=== PATIENT | male | born 1945 | race Caucasian/White ===

== ENCOUNTER 2021-02-21 00:51 | Outpatient (RCR) | payer OTHER, SELFPAY ==
[2021-02-07] MEDS: Normal Saline Flush 10 ML SYR IVP (08:22)
[2021-02-07 08:35] LABS: Abs Immature Grans 0.01 10^3/uL (0.0-0.06); Absolute Basophil Count 0.02 10^3/uL (0.0-0.2); Absolute Eosinophil Count 0.12 10^3/uL (0.0-0.7); Absolute Lymphocyte Count 1.06 10^3/uL (1.2-3.4); Absolute Monocyte Count 0.38 10^3/uL (0.1-0.8); Absolute Neutrophil Count 3.15 10^3/uL (1.2-6.7); Basophils % 0.4; Eosinophils % 2.5; HCT 39.6 % (40.0-50.0); HGB 12.2 g/dL (13.5-17.5); Immature Grans % 0.2; Lymphocytes % 22.4; MCH 28.1 pg (27.0-33.0); MCHC 30.8 % (32.0-36.0); MCV 91.2 fL (80-95); MPV 10.1 fL (8.0-11.0); Neutrophils % 66.5; Nucleated RBC 0 %; Platelet Count 181 10^3/uL (130-400); RBC 4.34 10^6/uL (4.36-5.78); RDW 17.8 % (11.8-14.1); RDW-SD 59.5 fL; WBC 4.74 10^3/uL (4.4-10.8)
[2021-02-07 09:09] LABS: ALT 22 U/L (16-63); AST 18 U/L (15-37); Albumin 3.4 g/dL (3.4-5.0); Alkaline Phosphatase 151 U/L (46-116); Anion Gap 6.3 mmol/L (3-11); BUN 12 mg/dL (7-18); Bilirubin, Total 0.4 mg/dL (0.2-1.0); CO2 30.7 mmol/L (21.0-32.0); Calcium 8.5 mg/dL (8.5-10.1); Chloride 105 mmol/L (98-107); Glucose 151 mg/dL (74-106); Potassium 3.6 mmol/L (3.5-5.1); Sodium 142 mmol/L (136-145); Total Protein 7.3 g/dL (6.4-8.2)
[2021-02-08 13:47] LABS: CEA <2.0 ng/mL (See Note)
[2021-02-21] MEDS: Normal Saline Flush 10 ML SYR IVP (09:08)
[2021-02-21 09:23] LABS: Abs Immature Grans 0.01 10^3/uL (0.0-0.06); Absolute Basophil Count 0.02 10^3/uL (0.0-0.2); Absolute Eosinophil Count 0.11 10^3/uL (0.0-0.7); Absolute Lymphocyte Count 1.26 10^3/uL (1.2-3.4); Absolute Monocyte Count 0.58 10^3/uL (0.1-0.8); Absolute Neutrophil Count 3.04 10^3/uL (1.2-6.7); Basophils % 0.4; Eosinophils % 2.2; HCT 38.4 % (40.0-50.0); HGB 12.1 g/dL (13.5-17.5); Immature Grans % 0.2; Lymphocytes % 25.1; MCH 28.2 pg (27.0-33.0); MCHC 31.5 % (32.0-36.0); MCV 89.5 fL (80-95); MPV 9.5 fL (8.0-11.0); Monocytes % 11.6; Neutrophils % 60.5; Nucleated RBC 0 %; Platelet Count 153 10^3/uL (130-400); RBC 4.29 10^6/uL (4.36-5.78); RDW 16.5 % (11.8-14.1); RDW-SD 51.6 fL; WBC 5.02 10^3/uL (4.4-10.8)
[2021-02-21 09:42] LABS: ALT 22 U/L (16-63); AST 17 U/L (15-37); Albumin 3.4 g/dL (3.4-5.0); Alkaline Phosphatase 124 U/L (46-116); Anion Gap 7.9 mmol/L (3-11); BUN 14 mg/dL (7-18); Bilirubin, Total 0.5 mg/dL (0.2-1.0); CO2 29.1 mmol/L (21.0-32.0); CREATININE 0.9 mg/dL (0.70-1.30); Calcium 8.5 mg/dL (8.5-10.1); Chloride 109 mmol/L (98-107); Glucose 108 mg/dL (74-106); Potassium 3.3 mmol/L (3.5-5.1); Sodium 146 mmol/L (136-145); Total Protein 7.3 g/dL (6.4-8.2)
[2021-02-21 17:39] LABS: CEA 0.9 ng/mL (See Note)
== END 2021-02-27 23:59 | disposition home or self-care (01) ==
LOC: INF 00:51
PROVIDERS: PCP Family Medicine; Visit Provider Internal Medicine Medical Oncology
DX: C77.1 Secondary and unspecified malignant neoplasm of intrathoracic lymph nodes (principal); C15.5 Malignant neoplasm of lower third of esophagus
CPT/HCPCS: 36591; 80053; 82378; 83735; 85025

== ENCOUNTER 2021-03-21 01:38 | Outpatient (RCR) | payer OTHER, SELFPAY ==
[2021-03-07] MEDS: Normal Saline Flush 10 ML SYR IVP (08:49)
[2021-03-07 09:00] LABS: Absolute Basophil Count 0.02 10^3/uL (0.0-0.2); Absolute Eosinophil Count 0.06 10^3/uL (0.0-0.7); Absolute Monocyte Count 0.63 10^3/uL (0.1-0.8); Absolute Neutrophil Count 2.08 10^3/uL (1.2-6.7); Basophils % 0.5; Eosinophils % 1.5; HGB 12.3 g/dL (13.5-17.5); Lymphocytes % 30.1; MCH 28.6 pg (27.0-33.0); MCHC 31.5 % (32.0-36.0); MCV 90.7 fL (80-95); MPV 10.2 fL (8.0-11.0); Monocytes % 15.8; Neutrophils % 52.1; Nucleated RBC 0 %; Platelet Count 118 10^3/uL (130-400); RDW 16.1 % (11.8-14.1); RDW-SD 50.9 fL; WBC 3.99 10^3/uL (4.4-10.8)
[2021-03-07 09:17] LABS: ALT 34 U/L (16-63); AST 29 U/L (15-37); Albumin 3.6 g/dL (3.4-5.0); Alkaline Phosphatase 132 U/L (46-116); Anion Gap 5.2 mmol/L (3-11); BUN 18 mg/dL (7-18); Bilirubin, Total 0.6 mg/dL (0.2-1.0); CO2 31.8 mmol/L (21.0-32.0); CREATININE 1.1 mg/dL (0.70-1.30); Calcium 8.9 mg/dL (8.5-10.1); Chloride 105 mmol/L (98-107); Glucose 98 mg/dL (74-106); Potassium 3.7 mmol/L (3.5-5.1); Sodium 142 mmol/L (136-145); Total Protein 7.5 g/dL (6.4-8.2)
[2021-03-07 17:09] LABS: CEA 1.2 ng/mL (See Note)
[2021-03-21] MEDS: Normal Saline Flush 10 ML SYR IVP (08:29)
[2021-03-21 08:42] LABS: Abs Immature Grans 0.01 10^3/uL (0.0-0.06); Absolute Basophil Count 0.02 10^3/uL (0.0-0.2); Absolute Eosinophil Count 0.06 10^3/uL (0.0-0.7); Absolute Lymphocyte Count 1.15 10^3/uL (1.2-3.4); Absolute Monocyte Count 0.55 10^3/uL (0.1-0.8); Absolute Neutrophil Count 1.26 10^3/uL (1.2-6.7); Basophils % 0.7; HCT 38.8 % (40.0-50.0); HGB 12.3 g/dL (13.5-17.5); Immature Grans % 0.3; Lymphocytes % 37.7; MCH 29.1 pg (27.0-33.0); MCHC 31.7 % (32.0-36.0); MCV 91.7 fL (80-95); MPV 10.4 fL (8.0-11.0); Neutrophils % 41.3; Nucleated RBC 0 %; Platelet Count 103 10^3/uL (130-400); RBC 4.23 10^6/uL (4.36-5.78); RDW 16.5 % (11.8-14.1); RDW-SD 52.1 fL; WBC 3.05 10^3/uL (4.4-10.8)
[2021-03-21 08:53] LABS: ALT 44 U/L (16-63); AST 35 U/L (15-37); Albumin 3.5 g/dL (3.4-5.0); Alkaline Phosphatase 136 U/L (46-116); Anion Gap 7.1 mmol/L (3-11); BUN 17 mg/dL (7-18); Bilirubin, Total 0.5 mg/dL (0.2-1.0); CO2 29.9 mmol/L (21.0-32.0); CREATININE 0.9 mg/dL (0.70-1.30); Calcium 8.7 mg/dL (8.5-10.1); Chloride 106 mmol/L (98-107); Glucose 146 mg/dL (74-106); Magnesium 1.9 mg/dL (1.8-2.4); Potassium 3.4 mmol/L (3.5-5.1); Sodium 143 mmol/L (136-145); Total Protein 7.3 g/dL (6.4-8.2)
[2021-03-21 18:37] LABS: CEA 1.3 ng/mL (See Note)
== END 2021-03-29 23:59 | disposition home or self-care (01) ==
LOC: INF 01:38
PROVIDERS: PCP Family Medicine; Visit Provider Internal Medicine Medical Oncology
DX: C15.5 Malignant neoplasm of lower third of esophagus (principal); Z45.2 Encounter for adjustment and management of vascular access device; C77.1 Secondary and unspecified malignant neoplasm of intrathoracic lymph nodes
CPT/HCPCS: 36591; 80053; 82378; 83735; 85025

== ENCOUNTER 2021-04-18 01:23 | Outpatient (RCR) | payer OTHER, SELFPAY ==
[2021-04-04] MEDS: Normal Saline Flush 10 ML SYR IVP (08:40)
[2021-04-04 08:55] LABS: Abs Immature Grans 0.01 10^3/uL (0.0-0.06); Absolute Basophil Count 0.01 10^3/uL (0.0-0.2); Absolute Eosinophil Count 0.05 10^3/uL (0.0-0.7); Absolute Lymphocyte Count 1.07 10^3/uL (1.2-3.4); Absolute Monocyte Count 0.67 10^3/uL (0.1-0.8); Basophils % 0.2; Eosinophils % 1.2; HCT 36.9 % (40.0-50.0); HGB 11.9 g/dL (13.5-17.5); Immature Grans % 0.2; Lymphocytes % 26.7; MCH 29.8 pg (27.0-33.0); MCHC 32.2 % (32.0-36.0); MCV 92.3 fL (80-95); MPV 10.4 fL (8.0-11.0); Monocytes % 16.7; Nucleated RBC 0 %; RDW 17.2 % (11.8-14.1); RDW-SD 55.9 fL; WBC 4.01 10^3/uL (4.4-10.8)
[2021-04-04 09:05] LABS: Absolute Neutrophil Count 2.21 10^3/uL (1.2-6.7)
[2021-04-04 09:11] LABS: ALT 39 U/L (16-63); AST 31 U/L (15-37); Albumin 3.3 g/dL (3.4-5.0); Alkaline Phosphatase 121 U/L (46-116); Anion Gap 7.4 mmol/L (3-11); BUN 14 mg/dL (7-18); Bilirubin, Total 0.6 mg/dL (0.2-1.0); CO2 29.6 mmol/L (21.0-32.0); CREATININE 0.9 mg/dL (0.70-1.30); Calcium 8.9 mg/dL (8.5-10.1); Chloride 104 mmol/L (98-107); Glucose 109 mg/dL (74-106); Magnesium 1.9 mg/dL (1.8-2.4); Potassium 3.4 mmol/L (3.5-5.1); Sodium 141 mmol/L (136-145)
[2021-04-04 09:19] LABS: Platelet Count 99 10^3/uL (130-400)
[2021-04-04 17:38] LABS: CEA 1.3 ng/mL (See Note)
[2021-04-18] MEDS: Normal Saline Flush 10 ML SYR IVP (09:42)
[2021-04-18 09:50] LABS: Abs Immature Grans 0.01 10^3/uL (0.0-0.06); Absolute Basophil Count 0.02 10^3/uL (0.0-0.2); Absolute Eosinophil Count 0.06 10^3/uL (0.0-0.7); Absolute Lymphocyte Count 1.06 10^3/uL (1.2-3.4); Absolute Monocyte Count 0.76 10^3/uL (0.1-0.8); Absolute Neutrophil Count 1.83 10^3/uL (1.2-6.7); Basophils % 0.5; Eosinophils % 1.6; HCT 38.2 % (40.0-50.0); HGB 11.9 g/dL (13.5-17.5); Immature Grans % 0.3; Lymphocytes % 28.3; MCH 30.1 pg (27.0-33.0); MCHC 31.2 % (32.0-36.0); MCV 96.7 fL (80-95); MPV 11.5 fL (8.0-11.0); Monocytes % 20.3; Nucleated RBC 0 %; Platelet Count 114 10^3/uL (130-400); RBC 3.95 10^6/uL (4.36-5.78); RDW 19.4 % (11.8-14.1); RDW-SD 67.1 fL; WBC 3.74 10^3/uL (4.4-10.8)
[2021-04-18 10:03] LABS: ALT 43 U/L (16-63); AST 39 U/L (15-37); Albumin 3.3 g/dL (3.4-5.0); Alkaline Phosphatase 148 U/L (46-116); Anion Gap 6.9 mmol/L (3-11); BUN 13 mg/dL (7-18); Bilirubin, Total 0.6 mg/dL (0.2-1.0); CO2 28.1 mmol/L (21.0-32.0); CREATININE 1.1 mg/dL (0.70-1.30); Chloride 105 mmol/L (98-107); Glucose 96 mg/dL (74-106); Magnesium 2.1 mg/dL (1.8-2.4); Sodium 140 mmol/L (136-145); Total Protein 7.3 g/dL (6.4-8.2)
[2021-04-18 18:20] LABS: CEA 1.8 ng/mL (See Note)
== END 2021-04-29 23:59 | disposition home or self-care (01) ==
LOC: INF 01:23
PROVIDERS: PCP Family Medicine; Visit Provider Internal Medicine Medical Oncology
DX: C77.1 Secondary and unspecified malignant neoplasm of intrathoracic lymph nodes (principal); C15.5 Malignant neoplasm of lower third of esophagus; Z45.2 Encounter for adjustment and management of vascular access device
CPT/HCPCS: 36591; 80053; 82378; 83735; 85025

== ENCOUNTER 2021-05-25 01:04 | Outpatient (RCR) | payer OTHER, SELFPAY ==
[2021-05-02 08:33] LABS: Abs Immature Grans 0.01 10^3/uL (0.0-0.06); Absolute Basophil Count 0.02 10^3/uL (0.0-0.2); Absolute Eosinophil Count 0.06 10^3/uL (0.0-0.7); Absolute Lymphocyte Count 1.11 10^3/uL (1.2-3.4); Absolute Monocyte Count 0.72 10^3/uL (0.1-0.8); Absolute Neutrophil Count 1.44 10^3/uL (1.2-6.7); Basophils % 0.6; Eosinophils % 1.8; HCT 36.2 % (40.0-50.0); HGB 11.6 g/dL (13.5-17.5); Immature Grans % 0.3; MCH 31.3 pg (27.0-33.0); MCV 97.6 fL (80-95); MPV 12.3 fL (8.0-11.0); Monocytes % 21.4; Neutrophils % 42.9; Nucleated RBC 0 %; Platelet Count 108 10^3/uL (130-400); RBC 3.71 10^6/uL (4.36-5.78); RDW 19.9 % (11.8-14.1); RDW-SD 70.6 fL; WBC 3.36 10^3/uL (4.4-10.8)
[2021-05-02 08:47] LABS: ALT 34 U/L (16-63); AST 34 U/L (15-37); Albumin 3.3 g/dL (3.4-5.0); Alkaline Phosphatase 138 U/L (46-116); Anion Gap 10.4 mmol/L (3-11); BUN 14 mg/dL (7-18); Bilirubin, Total 0.5 mg/dL (0.2-1.0); CO2 27.6 mmol/L (21.0-32.0); CREATININE 0.9 mg/dL (0.70-1.30); Calcium 8.7 mg/dL (8.5-10.1); Chloride 105 mmol/L (98-107); Glucose 91 mg/dL (74-106); Magnesium 1.9 mg/dL (1.8-2.4); Potassium 3.2 mmol/L (3.5-5.1); Sodium 143 mmol/L (136-145); Total Protein 7.2 g/dL (6.4-8.2)
[2021-05-02] MEDS: Normal Saline Flush 10 ML SYR IVP (08:49)
[2021-05-16] MEDS: Normal Saline Flush 10 ML SYR IVP (09:02)
[2021-05-16 09:12] LABS: Absolute Basophil Count 0.02 10^3/uL (0.0-0.2); Absolute Eosinophil Count 0.07 10^3/uL (0.0-0.7); Absolute Lymphocyte Count 1.07 10^3/uL (1.2-3.4); Absolute Monocyte Count 0.68 10^3/uL (0.1-0.8); Absolute Neutrophil Count 1.62 10^3/uL (1.2-6.7); Basophils % 0.6; HGB 11.6 g/dL (13.5-17.5); Lymphocytes % 30.9; MCH 31.4 pg (27.0-33.0); MCHC 31.4 % (32.0-36.0); MCV 100.3 fL (80-95); Monocytes % 19.7; Neutrophils % 46.8; Nucleated RBC 0 %; RBC 3.69 10^6/uL (4.36-5.78); RDW 19.8 % (11.8-14.1); RDW-SD 73.3 fL; WBC 3.46 10^3/uL (4.4-10.8)
[2021-05-16 09:27] LABS: Platelet Count 96 10^3/uL (130-400)
[2021-05-16 09:43] LABS: ALT 29 U/L (16-63); AST 32 U/L (15-37); Albumin 3.3 g/dL (3.4-5.0); Alkaline Phosphatase 137 U/L (46-116); Anion Gap 9.4 mmol/L (3-11); BUN 13 mg/dL (7-18); Bilirubin, Total 0.5 mg/dL (0.2-1.0); CO2 27.6 mmol/L (21.0-32.0); Chloride 104 mmol/L (98-107); Glucose 105 mg/dL (74-106); Magnesium 1.9 mg/dL (1.8-2.4); Potassium 3.6 mmol/L (3.5-5.1); Sodium 141 mmol/L (136-145); Total Protein 7.2 g/dL (6.4-8.2)
[2021-05-16 18:20] LABS: CEA 1.5 ng/mL (See Note)
[2021-05-25] MEDS: Normal Saline Flush 10 ML SYR IVP (10:46)
[2021-05-25 10:59] LABS: Abs Immature Grans 0.01 10^3/uL (0.0-0.06); Absolute Basophil Count 0.01 10^3/uL (0.0-0.2); Absolute Eosinophil Count 0.14 10^3/uL (0.0-0.7); Absolute Lymphocyte Count 1.17 10^3/uL (1.2-3.4); Absolute Monocyte Count 1.02 10^3/uL (0.1-0.8); Absolute Neutrophil Count 1.32 10^3/uL (1.2-6.7); Basophils % 0.3; Eosinophils % 3.8; HCT 38.1 % (40.0-50.0); HGB 12.1 g/dL (13.5-17.5); Immature Grans % 0.3; Lymphocytes % 31.9; MCH 31.9 pg (27.0-33.0); MCHC 31.8 % (32.0-36.0); MCV 100.5 fL (80-95); MPV 11.3 fL (8.0-11.0); Monocytes % 27.8; Neutrophils % 35.9; Nucleated RBC 0 %; Platelet Count 151 10^3/uL (130-400); RBC 3.79 10^6/uL (4.36-5.78); RDW 18.8 % (11.8-14.1); RDW-SD 69.7 fL; WBC 3.67 10^3/uL (4.4-10.8)
[2021-05-25 11:11] LABS: ALT 24 U/L (16-63); AST 31 U/L (15-37); Albumin 3.4 g/dL (3.4-5.0); Alkaline Phosphatase 144 U/L (46-116); Anion Gap 8.1 mmol/L (3-11); BUN 19 mg/dL (7-18); Bilirubin, Total 0.5 mg/dL (0.2-1.0); CO2 30.9 mmol/L (21.0-32.0); CREATININE 1.2 mg/dL (0.70-1.30); Chloride 100 mmol/L (98-107); Estimated GFR 59.18 (mL/min/1.73m2); Glucose 116 mg/dL (74-106); Magnesium 2.1 mg/dL (1.8-2.4); Potassium 3.3 mmol/L (3.5-5.1); Sodium 139 mmol/L (136-145); Total Protein 7.6 g/dL (6.4-8.2)
[2021-05-25 17:50] LABS: CEA 1.3 ng/mL (See Note)
== END 2021-05-30 23:59 | disposition home or self-care (01) ==
LOC: INF 01:04
PROVIDERS: PCP Family Medicine; Visit Provider Internal Medicine Medical Oncology
DX: C15.5 Malignant neoplasm of lower third of esophagus (principal); C77.1 Secondary and unspecified malignant neoplasm of intrathoracic lymph nodes; Z45.2 Encounter for adjustment and management of vascular access device
CPT/HCPCS: 36591; 80053; 82378; 83735; 85025

== ENCOUNTER 2021-06-20 02:00 | Outpatient (RCR) | payer OTHER, SELFPAY ==
[2021-06-06] MEDS: Normal Saline Flush 10 ML SYR IVP (08:13)
[2021-06-06 08:32] LABS: Abs Immature Grans 0.01 10^3/uL (0.0-0.06); Absolute Basophil Count 0.01 10^3/uL (0.0-0.2); Absolute Eosinophil Count 0.07 10^3/uL (0.0-0.7); Absolute Lymphocyte Count 0.99 10^3/uL (1.2-3.4); Absolute Monocyte Count 0.54 10^3/uL (0.1-0.8); Absolute Neutrophil Count 1.86 10^3/uL (1.2-6.7); Basophils % 0.3; HCT 37.8 % (40.0-50.0); HGB 12.2 g/dL (13.5-17.5); Immature Grans % 0.3; Lymphocytes % 28.4; MCHC 32.3 % (32.0-36.0); MCV 102.2 fL (80-95); Monocytes % 15.5; Neutrophils % 53.5; Nucleated RBC 0 %; RDW 17.5 % (11.8-14.1); RDW-SD 65.6 fL; WBC 3.48 10^3/uL (4.4-10.8)
[2021-06-06 08:34] LABS: ALT 30 U/L (16-63); AST 31 U/L (15-37); Albumin 3.5 g/dL (3.4-5.0); Alkaline Phosphatase 147 U/L (46-116); Anion Gap 8.8 mmol/L (3-11); BUN 19 mg/dL (7-18); Bilirubin, Total 0.6 mg/dL (0.2-1.0); CO2 30.2 mmol/L (21.0-32.0); CREATININE 1.3 mg/dL (0.70-1.30); Calcium 9.2 mg/dL (8.5-10.1); Chloride 103 mmol/L (98-107); Estimated GFR 53.96 (mL/min/1.73m2); Glucose 109 mg/dL (74-106); Magnesium 1.9 mg/dL (1.8-2.4); Potassium 3.8 mmol/L (3.5-5.1); Sodium 142 mmol/L (136-145)
[2021-06-06 08:41] LABS: Diff Comment Diff Reviewed; Platelet Count 76 10^3/uL (130-400); RBC Morphology Normal
[2021-06-06 19:00] LABS: CEA 1.7 ng/mL (See Note)
[2021-06-20] MEDS: Normal Saline Flush 10 ML SYR IVP (08:17)
[2021-06-20 08:42] LABS: Abs Immature Grans 0.01 10^3/uL (0.0-0.06); Absolute Basophil Count 0.02 10^3/uL (0.0-0.2); Absolute Eosinophil Count 0.05 10^3/uL (0.0-0.7); Absolute Lymphocyte Count 1.15 10^3/uL (1.2-3.4); Absolute Monocyte Count 0.77 10^3/uL (0.1-0.8); Absolute Neutrophil Count 1.19 10^3/uL (1.2-6.7); Basophils % 0.6; Eosinophils % 1.6; HCT 35.9 % (40.0-50.0); HGB 11.8 g/dL (13.5-17.5); Immature Grans % 0.3; Lymphocytes % 36.1; MCH 33.8 pg (27.0-33.0); MCHC 32.9 % (32.0-36.0); MCV 102.9 fL (80-95); MPV 12.7 fL (8.0-11.0); Monocytes % 24.1; Neutrophils % 37.3; Nucleated RBC 0 %; RBC 3.49 10^6/uL (4.36-5.78); RDW 17.2 % (11.8-14.1); RDW-SD 64.7 fL; WBC 3.19 10^3/uL (4.4-10.8)
[2021-06-20 08:55] LABS: Diff Comment Diff Reviewed; Platelet Count 78 10^3/uL (130-400); Polychromasia Present
[2021-06-20 08:56] LABS: ALT 28 U/L (16-63); AST 35 U/L (15-37); Albumin 3.3 g/dL (3.4-5.0); Alkaline Phosphatase 147 U/L (46-116); Anion Gap 8.3 mmol/L (3-11); BUN 13 mg/dL (7-18); Bilirubin, Total 0.4 mg/dL (0.2-1.0); CO2 29.7 mmol/L (21.0-32.0); CREATININE 1.1 mg/dL (0.70-1.30); Calcium 9.1 mg/dL (8.5-10.1); Chloride 102 mmol/L (98-107); Glucose 132 mg/dL (74-106); Magnesium 1.9 mg/dL (1.8-2.4); Poikilocytes 1+; Potassium 3.4 mmol/L (3.5-5.1); Sodium 140 mmol/L (136-145); Total Protein 7.4 g/dL (6.4-8.2)
[2021-06-20 18:11] LABS: CEA 1.9 ng/mL (See Note)
== END 2021-06-27 23:59 | disposition home or self-care (01) ==
LOC: INF 02:00
PROVIDERS: PCP Family Medicine; Visit Provider Internal Medicine Medical Oncology
DX: C15.5 Malignant neoplasm of lower third of esophagus (principal); C77.1 Secondary and unspecified malignant neoplasm of intrathoracic lymph nodes; Z45.2 Encounter for adjustment and management of vascular access device
CPT/HCPCS: 36591; 80053; 82378; 83735; 85025

== ENCOUNTER 2021-07-18 02:31 | Outpatient (RCR) | payer OTHER, SELFPAY ==
[2021-07-04] MEDS: Normal Saline Flush 10 ML SYR IVP (09:58)
[2021-07-04 10:40] LABS: Abs Immature Grans 0.03 10^3/uL (0.0-0.06); Absolute Basophil Count 0.02 10^3/uL (0.0-0.2); Absolute Eosinophil Count 0.08 10^3/uL (0.0-0.7); Absolute Lymphocyte Count 1.06 10^3/uL (1.2-3.4); Absolute Monocyte Count 0.65 10^3/uL (0.1-0.8); Absolute Neutrophil Count 1.24 10^3/uL (1.2-6.7); Basophils % 0.6; Eosinophils % 2.6; HCT 36.1 % (40.0-50.0); HGB 11.7 g/dL (13.5-17.5); Lymphocytes % 34.4; MCH 33.7 pg (27.0-33.0); MCHC 32.4 % (32.0-36.0); Monocytes % 21.1; Neutrophils % 40.3; Nucleated RBC 0 %; RBC 3.47 10^6/uL (4.36-5.78); RDW 16.5 % (11.8-14.1); RDW-SD 63.6 fL; WBC 3.08 10^3/uL (4.4-10.8)
[2021-07-04 10:49] LABS: ALT 26 U/L (16-63); AST 34 U/L (15-37); Albumin 3.2 g/dL (3.4-5.0); Alkaline Phosphatase 140 U/L (46-116); Anion Gap 8.7 mmol/L (3-11); BUN 16 mg/dL (7-18); Bilirubin, Total 0.5 mg/dL (0.2-1.0); CO2 28.3 mmol/L (21.0-32.0); CREATININE 1.1 mg/dL (0.70-1.30); Calcium 9.1 mg/dL (8.5-10.1); Chloride 105 mmol/L (98-107); Glucose 105 mg/dL (74-106); Magnesium 1.9 mg/dL (1.8-2.4); Potassium 3.1 mmol/L (3.5-5.1); Sodium 142 mmol/L (136-145); Total Protein 7.6 g/dL (6.4-8.2)
[2021-07-04 10:53] LABS: Platelet Count 85 10^3/uL (130-400)
[2021-07-04 17:49] LABS: CEA 1.5 ng/mL (See Note)
[2021-07-18] MEDS: Normal Saline Flush 10 ML SYR IVP (10:11)
[2021-07-18 10:26] LABS: Abs Immature Grans 0.02 10^3/uL (0.0-0.06); Absolute Basophil Count 0.02 10^3/uL (0.0-0.2); Absolute Eosinophil Count 0.08 10^3/uL (0.0-0.7); Absolute Lymphocyte Count 1.14 10^3/uL (1.2-3.4); Absolute Monocyte Count 0.96 10^3/uL (0.1-0.8); Absolute Neutrophil Count 2.73 10^3/uL (1.2-6.7); Basophils % 0.4; Eosinophils % 1.6; HCT 38.4 % (40.0-50.0); HGB 12.3 g/dL (13.5-17.5); Immature Grans % 0.4; MCH 34.1 pg (27.0-33.0); MCV 106.4 fL (80-95); MPV 11.7 fL (8.0-11.0); Monocytes % 19.4; Neutrophils % 55.2; Nucleated RBC 0 %; Platelet Count 126 10^3/uL (130-400); RBC 3.61 10^6/uL (4.36-5.78); RDW 16.4 % (11.8-14.1); RDW-SD 64.4 fL; WBC 4.95 10^3/uL (4.4-10.8)
[2021-07-18 10:40] LABS: ALT 35 U/L (16-63); AST 43 U/L (15-37); Albumin 3.3 g/dL (3.4-5.0); Alkaline Phosphatase 159 U/L (46-116); Anion Gap 8.4 mmol/L (3-11); BUN 17 mg/dL (7-18); Bilirubin, Total 0.5 mg/dL (0.2-1.0); CO2 28.6 mmol/L (21.0-32.0); CREATININE 1.1 mg/dL (0.70-1.30); Calcium 8.9 mg/dL (8.5-10.1); Chloride 102 mmol/L (98-107); Glucose 103 mg/dL (74-106); Magnesium 1.9 mg/dL (1.8-2.4); Potassium 3.9 mmol/L (3.5-5.1); Sodium 139 mmol/L (136-145); Total Protein 7.8 g/dL (6.4-8.2)
[2021-07-18 10:42] LABS: Macrocytosis 1+
== END 2021-07-28 23:59 | disposition home or self-care (01) ==
LOC: INF 02:31
PROVIDERS: PCP Family Medicine; Visit Provider Internal Medicine Medical Oncology
DX: C15.5 Malignant neoplasm of lower third of esophagus (principal); C77.1 Secondary and unspecified malignant neoplasm of intrathoracic lymph nodes; Z45.2 Encounter for adjustment and management of vascular access device
CPT/HCPCS: 36591; 80053; 82378; 83735; 85025

== ENCOUNTER 2021-07-18 12:59 | Outpatient (REF) | payer OTHER, SELFPAY ==
[2021-07-18 22:53] LABS: CEA 1.8 ng/mL (See Note)
== END 2021-07-18 13:00 | disposition home or self-care (01) ==
LOC: LBN 12:59
PROVIDERS: PCP Family Medicine; Visit Provider Internal Medicine Medical Oncology
DX: C15.5 Malignant neoplasm of lower third of esophagus (principal); C77.1 Secondary and unspecified malignant neoplasm of intrathoracic lymph nodes
CPT/HCPCS: 82378

== ENCOUNTER 2021-08-15 02:11 | Outpatient (RCR) | payer OTHER, SELFPAY ==
[2021-08-01] MEDS: Normal Saline Flush 10 ML SYR IVP (07:43)
[2021-08-01 08:09] LABS: Absolute Basophil Count 0.02 10^3/uL (0.0-0.2); Absolute Lymphocyte Count 0.95 10^3/uL (1.2-3.4); Absolute Monocyte Count 0.54 10^3/uL (0.1-0.8); Absolute Neutrophil Count 1.66 10^3/uL (1.2-6.7); Basophils % 0.6; Eosinophils % 3.1; HCT 37.5 % (40.0-50.0); HGB 11.9 g/dL (13.5-17.5); Lymphocytes % 29.1; MCH 33.9 pg (27.0-33.0); MCHC 31.7 % (32.0-36.0); MCV 106.8 fL (80-95); MPV 11.8 fL (8.0-11.0); Monocytes % 16.5; Neutrophils % 50.7; Nucleated RBC 0 %; RBC 3.51 10^6/uL (4.36-5.78); RDW 15.4 % (11.8-14.1); RDW-SD 61.1 fL; WBC 3.27 10^3/uL (4.4-10.8)
[2021-08-01 08:21] LABS: ALT 32 U/L (16-63); AST 37 U/L (15-37); Albumin 3.3 g/dL (3.4-5.0); Alkaline Phosphatase 139 U/L (46-116); Anion Gap 8.8 mmol/L (3-11); BUN 19 mg/dL (7-18); Bilirubin, Total 0.6 mg/dL (0.2-1.0); CO2 28.2 mmol/L (21.0-32.0); Calcium 8.7 mg/dL (8.5-10.1); Chloride 103 mmol/L (98-107); Glucose 122 mg/dL (74-106); Magnesium 1.9 mg/dL (1.8-2.4); Potassium 3.6 mmol/L (3.5-5.1); Sodium 140 mmol/L (136-145); Total Protein 7.4 g/dL (6.4-8.2)
[2021-08-01 08:27] LABS: Platelet Count 80 10^3/uL (130-400)
[2021-08-01 08:28] LABS: Diff Comment RBC Morph Reviewed; Macrocytosis 2+
[2021-08-01 18:36] LABS: CEA 1.5 ng/mL (See Note)
[2021-08-15] MEDS: Normal Saline Flush 10 ML SYR IVP (07:33)
[2021-08-15 07:48] LABS: Abs Immature Grans 0.01 10^3/uL (0.0-0.06); Absolute Basophil Count 0.01 10^3/uL (0.0-0.2); Absolute Eosinophil Count 0.05 10^3/uL (0.0-0.7); Absolute Lymphocyte Count 0.78 10^3/uL (1.2-3.4); Absolute Monocyte Count 0.52 10^3/uL (0.1-0.8); Basophils % 0.4; HCT 36.3 % (40.0-50.0); HGB 11.7 g/dL (13.5-17.5); Immature Grans % 0.4; Lymphocytes % 31.6; MCH 33.7 pg (27.0-33.0); MCHC 32.2 % (32.0-36.0); MCV 104.6 fL (80-95); MPV 11.1 fL (8.0-11.0); Monocytes % 21.1; Neutrophils % 44.5; RBC 3.47 10^6/uL (4.36-5.78); RDW 15.7 % (11.8-14.1); RDW-SD 60.3 fL; WBC 2.47 10^3/uL (4.4-10.8)
[2021-08-15 07:52] LABS: Platelet Count 96 10^3/uL (130-400)
[2021-08-15 07:59] LABS: ALT 33 U/L (16-63); AST 40 U/L (15-37); Albumin 3.3 g/dL (3.4-5.0); Alkaline Phosphatase 146 U/L (46-116); Anion Gap 8.3 mmol/L (3-11); BUN 17 mg/dL (7-18); Bilirubin, Total 0.6 mg/dL (0.2-1.0); CO2 29.7 mmol/L (21.0-32.0); CREATININE 1.3 mg/dL (0.70-1.30); Calcium 8.9 mg/dL (8.5-10.1); Chloride 104 mmol/L (98-107); Estimated GFR 53.96 (mL/min/1.73m2); Glucose 146 mg/dL (74-106); Magnesium 1.9 mg/dL (1.8-2.4); Potassium 3.6 mmol/L (3.5-5.1); Sodium 142 mmol/L (136-145); Total Protein 7.5 g/dL (6.4-8.2)
[2021-08-15 18:09] LABS: CEA 1.4 ng/mL (See Note)
== END 2021-08-27 23:59 | disposition home or self-care (01) ==
LOC: INF 02:11
PROVIDERS: PCP Family Medicine; Visit Provider Internal Medicine Medical Oncology
DX: C15.5 Malignant neoplasm of lower third of esophagus (principal); C77.1 Secondary and unspecified malignant neoplasm of intrathoracic lymph nodes; Z45.2 Encounter for adjustment and management of vascular access device
CPT/HCPCS: 36591; 80053; 82378; 83735; 85025

== ENCOUNTER 2021-09-12 02:55 | Outpatient (RCR) | payer OTHER, SELFPAY ==
[2021-08-29] MEDS: Normal Saline Flush 10 ML SYR IVP (07:41)
[2021-08-29 08:20] LABS: Absolute Basophil Count 0.02 10^3/uL (0.0-0.2); Absolute Eosinophil Count 0.06 10^3/uL (0.0-0.7); Absolute Lymphocyte Count 1.05 10^3/uL (1.2-3.4); Absolute Monocyte Count 0.54 10^3/uL (0.1-0.8); Absolute Neutrophil Count 1.37 10^3/uL (1.2-6.7); Basophils % 0.7; HCT 36.4 % (40.0-50.0); HGB 11.7 g/dL (13.5-17.5); Lymphocytes % 34.5; MCH 34.5 pg (27.0-33.0); MCHC 32.1 % (32.0-36.0); MCV 107 fL (80-95); MPV 11.3 fL (8.0-11.0); Monocytes % 17.8; Platelet Count 118 10^3/uL (130-400); RBC 3.39 10^6/uL (4.36-5.78); RDW 15.9 % (11.8-14.1); RDW-SD 62.7 fL; WBC 3.04 10^3/uL (4.4-10.8)
[2021-08-29 08:34] LABS: Diff Comment RBC Morph Reviewed
[2021-08-29 08:35] LABS: Macrocytosis 2+
[2021-08-29 08:42] LABS: ALT 25 U/L (16-63); AST 30 U/L (15-37); Albumin 3.3 g/dL (3.4-5.0); Alkaline Phosphatase 132 U/L (46-116); Anion Gap 8.4 mmol/L (3-11); BUN 15 mg/dL (7-18); Bilirubin, Total 0.7 mg/dL (0.2-1.0); CO2 29.6 mmol/L (21.0-32.0); CREATININE 1.1 mg/dL (0.70-1.30); Calcium 8.7 mg/dL (8.5-10.1); Chloride 103 mmol/L (98-107); Glucose 101 mg/dL (74-106); Magnesium 2.1 mg/dL (1.8-2.4); Potassium 3.3 mmol/L (3.5-5.1); Sodium 141 mmol/L (136-145); Total Protein 7.2 g/dL (6.4-8.2)
[2021-08-29 18:23] LABS: CEA 1.8 ng/mL (See Note)
[2021-09-12 10:39] LABS: Abs Immature Grans 0.01 10^3/uL (0.0-0.06); Absolute Basophil Count 0.02 10^3/uL (0.0-0.2); Absolute Eosinophil Count 0.08 10^3/uL (0.0-0.7); Absolute Lymphocyte Count 0.91 10^3/uL (1.2-3.4); Absolute Monocyte Count 0.54 10^3/uL (0.1-0.8); Absolute Neutrophil Count 1.91 10^3/uL (1.2-6.7); Basophils % 0.6; Eosinophils % 2.3; HCT 36.9 % (40.0-50.0); HGB 11.8 g/dL (13.5-17.5); Immature Grans % 0.3; Lymphocytes % 26.2; MCH 34.3 pg (27.0-33.0); MCV 107 fL (80-95); MPV 10.8 fL (8.0-11.0); Monocytes % 15.6; Platelet Count 132 10^3/uL (130-400); RBC 3.44 10^6/uL (4.36-5.78); RDW 15.5 % (11.8-14.1); RDW-SD 60.7 fL; WBC 3.47 10^3/uL (4.4-10.8)
[2021-09-12] MEDS: Normal Saline Flush 10 ML SYR IVP (10:52)
[2021-09-12 10:58] LABS: ALT 24 U/L (16-63); AST 30 U/L (15-37); Albumin 3.3 g/dL (3.4-5.0); Alkaline Phosphatase 127 U/L (46-116); Anion Gap 8.5 mmol/L (3-11); BUN 16 mg/dL (7-18); Bilirubin, Total 0.7 mg/dL (0.2-1.0); CO2 28.5 mmol/L (21.0-32.0); CREATININE 1.2 mg/dL (0.70-1.30); Calcium 8.5 mg/dL (8.5-10.1); Chloride 103 mmol/L (98-107); Estimated GFR 59.18 (mL/min/1.73m2); Glucose 117 mg/dL (74-106); Magnesium 2.2 mg/dL (1.8-2.4); Potassium 3.7 mmol/L (3.5-5.1); Sodium 140 mmol/L (136-145); Total Protein 7.3 g/dL (6.4-8.2)
[2021-09-12 18:03] LABS: CEA 1.2 ng/mL (See Note)
== END 2021-09-27 23:59 | disposition home or self-care (01) ==
LOC: INF 02:55
PROVIDERS: PCP Family Medicine; Visit Provider Internal Medicine Medical Oncology
DX: C15.5 Malignant neoplasm of lower third of esophagus (principal); C77.1 Secondary and unspecified malignant neoplasm of intrathoracic lymph nodes; Z45.2 Encounter for adjustment and management of vascular access device
CPT/HCPCS: 36591; 80053; 82378; 83735; 85025

== ENCOUNTER 2021-10-17 02:13 | Outpatient (RCR) | payer OTHER, SELFPAY ==
[2021-10-03] MEDS: Normal Saline Flush 10 ML SYR IVP (14:19)
[2021-10-03 14:31] LABS: Abs Immature Grans 0.01 10^3/uL (0.0-0.06); Absolute Basophil Count 0.02 10^3/uL (0.0-0.2); Absolute Eosinophil Count 0.05 10^3/uL (0.0-0.7); Absolute Lymphocyte Count 1.03 10^3/uL (1.2-3.4); Absolute Neutrophil Count 1.56 10^3/uL (1.2-6.7); Basophils % 0.6; Eosinophils % 1.5; HCT 37.8 % (40.0-50.0); HGB 12.4 g/dL (13.5-17.5); Immature Grans % 0.3; Lymphocytes % 31.5; MCH 34.6 pg (27.0-33.0); MCHC 32.8 % (32.0-36.0); MCV 106 fL (80-95); MPV 11.1 fL (8.0-11.0); Monocytes % 18.3; Neutrophils % 47.8; Platelet Count 143 10^3/uL (130-400); RBC 3.58 10^6/uL (4.36-5.78); RDW 14.7 % (11.8-14.1); RDW-SD 57.8 fL; WBC 3.27 10^3/uL (4.4-10.8)
[2021-10-03 14:47] LABS: ALT 25 U/L (16-63); AST 32 U/L (15-37); Albumin 3.5 g/dL (3.4-5.0); Alkaline Phosphatase 151 U/L (46-116); Anion Gap 6.1 mmol/L (3-11); BUN 13 mg/dL (7-18); Bilirubin, Total 0.7 mg/dL (0.2-1.0); CO2 30.9 mmol/L (21.0-32.0); Calcium 8.8 mg/dL (8.5-10.1); Chloride 104 mmol/L (98-107); Glucose 95 mg/dL (74-106); Magnesium 2.1 mg/dL (1.8-2.4); Potassium 3.9 mmol/L (3.5-5.1); Sodium 141 mmol/L (136-145); Total Protein 7.3 g/dL (6.4-8.2)
[2021-10-04 08:08] LABS: CEA 1.2 ng/mL (See Note)
[2021-10-17] MEDS: Normal Saline Flush 10 ML SYR IVP (09:35)
[2021-10-17 09:46] LABS: Abs Immature Grans 0.01 10^3/uL (0.0-0.06); Absolute Basophil Count 0.02 10^3/uL (0.0-0.2); Absolute Lymphocyte Count 0.87 10^3/uL (1.2-3.4); Absolute Monocyte Count 0.43 10^3/uL (0.1-0.8); Absolute Neutrophil Count 2.21 10^3/uL (1.2-6.7); Basophils % 0.5; Eosinophils % 2.7; HCT 36.1 % (40.0-50.0); HGB 11.9 g/dL (13.5-17.5); Immature Grans % 0.3; Lymphocytes % 23.9; MCH 34.2 pg (27.0-33.0); MCV 104 fL (80-95); MPV 10.4 fL (8.0-11.0); Monocytes % 11.8; Neutrophils % 60.8; Platelet Count 141 10^3/uL (130-400); RBC 3.48 10^6/uL (4.36-5.78); RDW 14.4 % (11.8-14.1); RDW-SD 54.3 fL; WBC 3.64 10^3/uL (4.4-10.8)
[2021-10-17 10:12] LABS: ALT 24 U/L (16-63); AST 25 U/L (15-37); Albumin 3.3 g/dL (3.4-5.0); Alkaline Phosphatase 126 U/L (46-116); Anion Gap 6.6 mmol/L (3-11); BUN 16 mg/dL (7-18); Bilirubin, Total 0.4 mg/dL (0.2-1.0); CO2 29.4 mmol/L (21.0-32.0); CREATININE 1.1 mg/dL (0.70-1.30); Calcium 8.7 mg/dL (8.5-10.1); Chloride 103 mmol/L (98-107); Glucose 111 mg/dL (74-106); Potassium 3.7 mmol/L (3.5-5.1); Sodium 139 mmol/L (136-145); Total Protein 6.9 g/dL (6.4-8.2)
[2021-10-17 19:47] LABS: CEA 1.2 ng/mL (See Note)
== END 2021-10-27 23:59 | disposition home or self-care (01) ==
LOC: INF 02:13
PROVIDERS: PCP Family Medicine; Visit Provider Internal Medicine Medical Oncology
DX: C15.5 Malignant neoplasm of lower third of esophagus (principal); C77.1 Secondary and unspecified malignant neoplasm of intrathoracic lymph nodes; Z45.2 Encounter for adjustment and management of vascular access device
CPT/HCPCS: 36591; 80053; 82378; 83735; 85025

== ENCOUNTER 2021-11-07 02:43 | Outpatient (RCR) | payer OTHER, SELFPAY ==
[2021-11-07 08:22] LABS: Abs Immature Grans 0.01 10^3/uL (0.0-0.06); Absolute Basophil Count 0.02 10^3/uL (0.0-0.2); Absolute Eosinophil Count 0.22 10^3/uL (0.0-0.7); Absolute Lymphocyte Count 0.97 10^3/uL (1.2-3.4); Absolute Neutrophil Count 1.79 10^3/uL (1.2-6.7); Basophils % 0.5; Eosinophils % 5.9; HCT 37.7 % (40.0-50.0); HGB 11.9 g/dL (13.5-17.5); Immature Grans % 0.3; Lymphocytes % 26.1; MCH 33.1 pg (27.0-33.0); MCHC 31.6 % (32.0-36.0); MCV 105 fL (80-95); MPV 10.5 fL (8.0-11.0); Monocytes % 18.9; Neutrophils % 48.3; Platelet Count 158 10^3/uL (130-400); RDW-SD 58.5 fL; WBC 3.71 10^3/uL (4.4-10.8)
[2021-11-07 08:37] LABS: ALT 21 U/L (16-63); AST 28 U/L (15-37); Albumin 3.4 g/dL (3.4-5.0); Alkaline Phosphatase 145 U/L (46-116); Anion Gap 5.5 mmol/L (3-11); BUN 13 mg/dL (7-18); Bilirubin, Total 0.4 mg/dL (0.2-1.0); CO2 31.5 mmol/L (21.0-32.0); Calcium 8.6 mg/dL (8.5-10.1); Chloride 105 mmol/L (98-107); Glucose 109 mg/dL (74-106); Magnesium 2.1 mg/dL (1.8-2.4); Potassium 3.7 mmol/L (3.5-5.1); Sodium 142 mmol/L (136-145); Total Protein 7.2 g/dL (6.4-8.2)
[2021-11-07] MEDS: Normal Saline Flush 10 ML SYR IVP (09:06)
[2021-11-07 18:21] LABS: CEA 1.4 ng/mL (See Note)
== END 2021-11-27 23:59 | disposition home or self-care (01) ==
LOC: INF 02:43
PROVIDERS: PCP Family Medicine; Visit Provider Internal Medicine Medical Oncology
DX: C15.5 Malignant neoplasm of lower third of esophagus (principal); C77.1 Secondary and unspecified malignant neoplasm of intrathoracic lymph nodes; Z45.2 Encounter for adjustment and management of vascular access device
CPT/HCPCS: 36591; 80053; 82378; 83735; 85025

== ENCOUNTER 2022-08-21 01:16 | Outpatient (RCR) | payer MEDICARE, SELFPAY ==
[2022-08-21] MEDS: Normal Saline Flush 10 ML SYR IVP (12:20)
[2022-08-21 12:24] LABS: Abs Immature Grans 0.01 10^3/uL (0.0-0.06); Absolute Basophil Count 0.03 10^3/uL (0.0-0.2); Absolute Eosinophil Count 0.14 10^3/uL (0.0-0.7); Absolute Lymphocyte Count 1.16 10^3/uL (1.2-3.4); Absolute Monocyte Count 0.64 10^3/uL (0.1-0.8); Absolute Neutrophil Count 3.52 10^3/uL (1.2-6.7); Basophils % 0.5; Eosinophils % 2.5; HCT 45.3 % (40.0-50.0); HGB 15.1 g/dL (13.5-17.5); Immature Grans % 0.2; Lymphocytes % 21.1; MCHC 33.3 % (32.0-36.0); MCV 93 fL (80-95); MPV 11.1 fL (8.0-11.0); Monocytes % 11.6; Neutrophils % 64.1; Platelet Count 190 10^3/uL (130-400); RBC 4.87 10^6/uL (4.36-5.78); RDW 13.7 % (11.8-14.1); RDW-SD 46.9 fL
[2022-08-21 12:49] LABS: ALT 23 U/L (16-63); AST 22 U/L (15-37); Albumin 3.6 g/dL (3.4-5.0); Alkaline Phosphatase 137 U/L (46-116); Anion Gap 5.2 mmol/L (3-11); BUN 15 mg/dL (7-18); Bilirubin, Total 0.6 mg/dL (0.2-1.0); CO2 31.8 mmol/L (21.0-32.0); CREATININE 1.2 mg/dL (0.70-1.30); Calcium 9.3 mg/dL (8.5-10.1); Chloride 101 mmol/L (98-107); Estimated GFR 63.07 (mL/min/1.73m2); Glucose 107 mg/dL (74-106); Potassium 3.7 mmol/L (3.5-5.1); Sodium 138 mmol/L (136-145); Total Protein 8.2 g/dL (6.4-8.2)
[2022-08-22 01:33] LABS: CEA 1.3 ng/mL (See Note)
== END 2022-08-27 23:59 | disposition home or self-care (01) ==
LOC: INF 01:16
PROVIDERS: PCP Family Medicine; Visit Provider Internal Medicine Medical Oncology
DX: C77.1 Secondary and unspecified malignant neoplasm of intrathoracic lymph nodes (principal); C15.5 Malignant neoplasm of lower third of esophagus; Z45.2 Encounter for adjustment and management of vascular access device
CPT/HCPCS: 36591; 80053; 82378; 83735; 85025

== ENCOUNTER 2022-09-20 04:10 | Outpatient (RCR) | payer MEDICARE, SELFPAY ==
[2022-09-06] MEDS: Normal Saline Flush 10 ML SYR IVP (08:38)
[2022-09-06 08:53] LABS: Abs Immature Grans 0.02 10^3/uL (0.0-0.06); Absolute Basophil Count 0.02 10^3/uL (0.0-0.2); Absolute Eosinophil Count 0.13 10^3/uL (0.0-0.7); Absolute Lymphocyte Count 1.08 10^3/uL (1.2-3.4); Absolute Monocyte Count 0.65 10^3/uL (0.1-0.8); Absolute Neutrophil Count 2.72 10^3/uL (1.2-6.7); Basophils % 0.4; Eosinophils % 2.8; HCT 43.2 % (40.0-50.0); HGB 14.3 g/dL (13.5-17.5); Immature Grans % 0.4; Lymphocytes % 23.4; MCH 30.6 pg (27.0-33.0); MCHC 33.1 % (32.0-36.0); MCV 93 fL (80-95); MPV 10.6 fL (8.0-11.0); Monocytes % 14.1; Neutrophils % 58.9; Platelet Count 197 10^3/uL (130-400); RBC 4.67 10^6/uL (4.36-5.78); RDW 14.2 % (11.8-14.1); RDW-SD 47.4 fL; WBC 4.62 10^3/uL (4.4-10.8)
[2022-09-06 09:24] LABS: ALT 21 U/L (16-63); AST 25 U/L (15-37); Albumin 3.5 g/dL (3.4-5.0); Alkaline Phosphatase 126 U/L (46-116); Anion Gap 4.8 mmol/L (3-11); BUN 17 mg/dL (7-18); Bilirubin, Total 0.9 mg/dL (0.2-1.0); CO2 31.2 mmol/L (21.0-32.0); CREATININE 1.3 mg/dL (0.70-1.30); Calcium 9.2 mg/dL (8.5-10.1); Chloride 101 mmol/L (98-107); Estimated GFR 57.29 (mL/min/1.73m2); Glucose 102 mg/dL (74-106); Magnesium 2.1 mg/dL (1.8-2.4); Potassium 3.8 mmol/L (3.5-5.1); Sodium 137 mmol/L (136-145); Total Protein 7.7 g/dL (6.4-8.2)
[2022-09-07 09:48] LABS: CEA 1.1 ng/mL (See Note)
[2022-09-20] MEDS: Normal Saline Flush 10 ML SYR IVP (08:43)
[2022-09-20 08:55] LABS: Abs Immature Grans 0.02 10^3/uL (0.0-0.06); Absolute Basophil Count 0.02 10^3/uL (0.0-0.2); Absolute Lymphocyte Count 1.09 10^3/uL (1.2-3.4); Absolute Monocyte Count 0.57 10^3/uL (0.1-0.8); Absolute Neutrophil Count 4.45 10^3/uL (1.2-6.7); Basophils % 0.3; Eosinophils % 1.6; HCT 44.9 % (40.0-50.0); HGB 14.9 g/dL (13.5-17.5); Immature Grans % 0.3; Lymphocytes % 17.4; MCH 30.9 pg (27.0-33.0); MCHC 33.2 % (32.0-36.0); MCV 93 fL (80-95); MPV 10.4 fL (8.0-11.0); Monocytes % 9.1; Neutrophils % 71.3; Platelet Count 175 10^3/uL (130-400); RBC 4.82 10^6/uL (4.36-5.78); RDW 14.5 % (11.8-14.1); RDW-SD 48.5 fL; WBC 6.25 10^3/uL (4.4-10.8)
[2022-09-20 09:18] LABS: ALT 22 U/L (16-63); AST 24 U/L (15-37); Albumin 3.7 g/dL (3.4-5.0); Alkaline Phosphatase 125 U/L (46-116); Anion Gap 8.5 mmol/L (3-11); BUN 16 mg/dL (7-18); Bilirubin, Total 0.7 mg/dL (0.2-1.0); CO2 30.5 mmol/L (21.0-32.0); CREATININE 1.4 mg/dL (0.70-1.30); Calcium 9.4 mg/dL (8.5-10.1); Chloride 100 mmol/L (98-107); Estimated GFR 52.41 (mL/min/1.73m2); Glucose 160 mg/dL (74-106); Potassium 3.9 mmol/L (3.5-5.1); Sodium 139 mmol/L (136-145)
[2022-09-20 20:04] LABS: CEA 1.2 ng/mL (See Note)
== END 2022-09-27 23:59 | disposition home or self-care (01) ==
LOC: INF 04:10
PROVIDERS: PCP Family Medicine; Visit Provider Internal Medicine Medical Oncology
DX: C77.1 Secondary and unspecified malignant neoplasm of intrathoracic lymph nodes (principal); C15.5 Malignant neoplasm of lower third of esophagus; Z45.2 Encounter for adjustment and management of vascular access device
CPT/HCPCS: 36591; 80053; 82378; 83735; 85025

== ENCOUNTER 2022-10-23 02:51 | Outpatient (RCR) | payer MEDICARE, SELFPAY ==
[2022-10-09] MEDS: Normal Saline Flush 10 ML SYR IVP (08:43)
[2022-10-09 08:59] LABS: Abs Immature Grans 0.01 10^3/uL (0.0-0.06); Absolute Basophil Count 0.03 10^3/uL (0.0-0.2); Absolute Eosinophil Count 0.13 10^3/uL (0.0-0.7); Absolute Lymphocyte Count 1.15 10^3/uL (1.2-3.4); Absolute Monocyte Count 0.72 10^3/uL (0.1-0.8); Basophils % 0.6; Eosinophils % 2.5; HCT 44.1 % (40.0-50.0); HGB 14.6 g/dL (13.5-17.5); Immature Grans % 0.2; Lymphocytes % 22.4; MCH 31.1 pg (27.0-33.0); MCHC 33.1 % (32.0-36.0); MCV 94 fL (80-95); MPV 11.1 fL (8.0-11.0); Neutrophils % 60.3; Platelet Count 213 10^3/uL (130-400); RBC 4.69 10^6/uL (4.36-5.78); RDW 15.2 % (11.8-14.1); WBC 5.14 10^3/uL (4.4-10.8)
[2022-10-09 09:20] LABS: ALT 21 U/L (16-63); AST 23 U/L (15-37); Albumin 3.7 g/dL (3.4-5.0); Alkaline Phosphatase 122 U/L (46-116); Anion Gap 6.8 mmol/L (3-11); BUN 17 mg/dL (7-18); Bilirubin, Total 0.8 mg/dL (0.2-1.0); CO2 32.2 mmol/L (21.0-32.0); CREATININE 1.2 mg/dL (0.70-1.30); Calcium 9.5 mg/dL (8.5-10.1); Chloride 100 mmol/L (98-107); Estimated GFR 63.07 (mL/min/1.73m2); Glucose 102 mg/dL (74-106); Magnesium 2.3 mg/dL (1.8-2.4); Potassium 3.7 mmol/L (3.5-5.1); Sodium 139 mmol/L (136-145); Total Protein 8.1 g/dL (6.4-8.2)
[2022-10-09 19:48] LABS: CEA 1.1 ng/mL (See Note)
[2022-10-23] MEDS: Normal Saline Flush 10 ML SYR IVP (08:14)
[2022-10-23 08:37] LABS: Abs Immature Grans 0.01 10^3/uL (0.0-0.06); Absolute Basophil Count 0.02 10^3/uL (0.0-0.2); Absolute Eosinophil Count 0.13 10^3/uL (0.0-0.7); Absolute Lymphocyte Count 0.91 10^3/uL (1.2-3.4); Absolute Monocyte Count 0.55 10^3/uL (0.1-0.8); Basophils % 0.4; Eosinophils % 2.8; HCT 41.5 % (40.0-50.0); HGB 13.9 g/dL (13.5-17.5); Immature Grans % 0.2; Lymphocytes % 19.7; MCH 31.6 pg (27.0-33.0); MCHC 33.5 % (32.0-36.0); MCV 94 fL (80-95); MPV 10.6 fL (8.0-11.0); Monocytes % 11.9; Platelet Count 165 10^3/uL (130-400); RDW 15.6 % (11.8-14.1); RDW-SD 53.9 fL; WBC 4.62 10^3/uL (4.4-10.8)
[2022-10-23 08:52] LABS: ALT 21 U/L (16-63); AST 21 U/L (15-37); Albumin 3.4 g/dL (3.4-5.0); Alkaline Phosphatase 118 U/L (46-116); Anion Gap 9.1 mmol/L (3-11); BUN 14 mg/dL (7-18); Bilirubin, Total 0.6 mg/dL (0.2-1.0); CO2 31.9 mmol/L (21.0-32.0); CREATININE 1.1 mg/dL (0.70-1.30); Calcium 8.6 mg/dL (8.5-10.1); Chloride 102 mmol/L (98-107); Estimated GFR 70.01 (mL/min/1.73m2); Glucose 113 mg/dL (74-106); Magnesium 1.9 mg/dL (1.8-2.4); Potassium 3.2 mmol/L (3.5-5.1); Sodium 143 mmol/L (136-145); Total Protein 7.5 g/dL (6.4-8.2)
[2022-10-23 19:43] LABS: CEA 1.3 ng/mL (See Note)
== END 2022-10-27 23:59 | disposition home or self-care (01) ==
LOC: INF 02:51
PROVIDERS: PCP Family Medicine; Visit Provider Internal Medicine Medical Oncology
DX: C15.5 Malignant neoplasm of lower third of esophagus (principal); Z45.2 Encounter for adjustment and management of vascular access device
CPT/HCPCS: 36591; 80053; 82378; 83735; 85025

== ENCOUNTER 2022-11-20 03:58 | Outpatient (RCR) | payer MEDICARE, SELFPAY ==
[2022-11-06] MEDS: Normal Saline Flush 10 ML SYR IVP (08:33)
[2022-11-06 09:17] LABS: Abs Immature Grans 0.01 10^3/uL (0.0-0.06); Absolute Basophil Count 0.03 10^3/uL (0.0-0.2); Absolute Eosinophil Count 0.11 10^3/uL (0.0-0.7); Absolute Lymphocyte Count 1.17 10^3/uL (1.2-3.4); Absolute Monocyte Count 0.72 10^3/uL (0.1-0.8); Absolute Neutrophil Count 2.81 10^3/uL (1.2-6.7); Basophils % 0.6; Eosinophils % 2.3; HCT 44.7 % (40.0-50.0); HGB 14.5 g/dL (13.5-17.5); Immature Grans % 0.2; Lymphocytes % 24.1; MCH 31.1 pg (27.0-33.0); MCHC 32.4 % (32.0-36.0); MCV 96 fL (80-95); MPV 10.6 fL (8.0-11.0); Monocytes % 14.8; Platelet Count 176 10^3/uL (130-400); RBC 4.66 10^6/uL (4.36-5.78); RDW 15.6 % (11.8-14.1); RDW-SD 54.8 fL; WBC 4.85 10^3/uL (4.4-10.8)
[2022-11-06 09:39] LABS: ALT 19 U/L (16-63); AST 21 U/L (15-37); Albumin 3.6 g/dL (3.4-5.0); Alkaline Phosphatase 123 U/L (46-116); Anion Gap 7.2 mmol/L (3-11); BUN 17 mg/dL (7-18); Bilirubin, Total 0.8 mg/dL (0.2-1.0); CO2 31.8 mmol/L (21.0-32.0); CREATININE 1.1 mg/dL (0.70-1.30); Calcium 8.9 mg/dL (8.5-10.1); Chloride 101 mmol/L (98-107); Estimated GFR 70.01 (mL/min/1.73m2); Glucose 100 mg/dL (74-106); Magnesium 2.1 mg/dL (1.8-2.4); Potassium 3.6 mmol/L (3.5-5.1); Sodium 140 mmol/L (136-145); Total Protein 7.8 g/dL (6.4-8.2)
[2022-11-07 17:27] LABS: CEA 1.6 ng/mL (See Note)
[2022-11-20 10:29] LABS: Abs Immature Grans 0.02 10^3/uL (0.0-0.06); Absolute Basophil Count 0.02 10^3/uL (0.0-0.2); Absolute Eosinophil Count 0.15 10^3/uL (0.0-0.7); Absolute Lymphocyte Count 1.05 10^3/uL (1.2-3.4); Absolute Monocyte Count 0.67 10^3/uL (0.1-0.8); Absolute Neutrophil Count 3.42 10^3/uL (1.2-6.7); Basophils % 0.4; Eosinophils % 2.8; HCT 44.1 % (40.0-50.0); HGB 14.7 g/dL (13.5-17.5); Immature Grans % 0.4; Lymphocytes % 19.7; MCH 31.6 pg (27.0-33.0); MCHC 33.3 % (32.0-36.0); MCV 95 fL (80-95); MPV 10.4 fL (8.0-11.0); Monocytes % 12.6; Neutrophils % 64.1; Platelet Count 194 10^3/uL (130-400); RBC 4.65 10^6/uL (4.36-5.78); RDW 15.7 % (11.8-14.1); WBC 5.33 10^3/uL (4.4-10.8)
[2022-11-20 10:52] LABS: ALT 18 U/L (16-63); AST 21 U/L (15-37); Albumin 3.7 g/dL (3.4-5.0); Alkaline Phosphatase 133 U/L (46-116); Anion Gap 9.9 mmol/L (3-11); BUN 22 mg/dL (7-18); Bilirubin, Total 0.6 mg/dL (0.2-1.0); CO2 26.1 mmol/L (21.0-32.0); CREATININE 1.6 mg/dL (0.70-1.30); Calcium 9.1 mg/dL (8.5-10.1); Chloride 100 mmol/L (98-107); Estimated GFR 44.65 (mL/min/1.73m2); Glucose 119 mg/dL (74-106); Potassium 3.9 mmol/L (3.5-5.1); Sodium 136 mmol/L (136-145); Total Protein 8.1 g/dL (6.4-8.2)
[2022-11-20 18:17] LABS: CEA 1.8 ng/mL (See Note)
== END 2022-11-27 23:59 | disposition home or self-care (01) ==
LOC: INF 03:58
PROVIDERS: PCP Family Medicine; Visit Provider Internal Medicine Medical Oncology
DX: C77.1 Secondary and unspecified malignant neoplasm of intrathoracic lymph nodes (principal); C15.5 Malignant neoplasm of lower third of esophagus; Z45.2 Encounter for adjustment and management of vascular access device
CPT/HCPCS: 36415; 36591; 80053; 82378; 83735; 85025

== ENCOUNTER 2022-11-20 13:58 | Outpatient (REF) | payer MEDICARE, SELFPAY ==
[2022-11-20 16:32] LABS: Bilirubin Negative (Negative); Blood Negative (Negative); Clarity Clear (Clear); Glucose Negative (Negative); Ketones Negative (Negative); Leukocyte Esterase Negative (Negative); Nitrite Negative (Negative); Specific Gravity 1.015 (1.005-1.025); Urobilinogen 0.2 mg/dL (Up to 0.2)
== END 2022-11-20 13:59 | disposition home or self-care (01) ==
LOC: LBN 13:58
PROVIDERS: PCP Family Medicine; Visit Provider Internal Medicine Medical Oncology
DX: N17.9 Acute kidney failure, unspecified (principal)
CPT/HCPCS: 81003

== ENCOUNTER 2022-12-25 02:04 | Outpatient (RCR) | payer MEDICARE, SELFPAY ==
[2022-12-04] MEDS: Normal Saline Flush 10 ML SYR IVP (09:30)
[2022-12-04 09:32] LABS: Abs Immature Grans 0.01 10^3/uL (0.0-0.06); Absolute Basophil Count 0.03 10^3/uL (0.0-0.2); Absolute Eosinophil Count 0.11 10^3/uL (0.0-0.7); Absolute Lymphocyte Count 0.83 10^3/uL (1.2-3.4); Absolute Monocyte Count 0.53 10^3/uL (0.1-0.8); Absolute Neutrophil Count 3.25 10^3/uL (1.2-6.7); Basophils % 0.6; Eosinophils % 2.3; HCT 40.6 % (40.0-50.0); HGB 13.3 g/dL (13.5-17.5); Immature Grans % 0.2; Lymphocytes % 17.4; MCH 32.3 pg (27.0-33.0); MCHC 32.8 % (32.0-36.0); MCV 99 fL (80-95); MPV 10.8 fL (8.0-11.0); Monocytes % 11.1; Neutrophils % 68.4; Platelet Count 176 10^3/uL (130-400); RBC 4.12 10^6/uL (4.36-5.78); RDW 16.1 % (11.8-14.1); RDW-SD 57.8 fL; WBC 4.76 10^3/uL (4.4-10.8)
[2022-12-04 09:50] LABS: ALT 14 U/L (16-63); AST 18 U/L (15-37); Albumin 3.2 g/dL (3.4-5.0); Alkaline Phosphatase 119 U/L (46-116); Anion Gap 5.6 mmol/L (3-11); BUN 10 mg/dL (7-18); Bilirubin, Total 0.5 mg/dL (0.2-1.0); CO2 28.4 mmol/L (21.0-32.0); CREATININE 0.9 mg/dL (0.70-1.30); Calcium 9.1 mg/dL (8.5-10.1); Chloride 104 mmol/L (98-107); Estimated GFR 88.51 (mL/min/1.73m2); Glucose 134 mg/dL (74-106); Potassium 4.6 mmol/L (3.5-5.1); Sodium 138 mmol/L (136-145); Total Protein 7.1 g/dL (6.4-8.2)
[2022-12-04 19:20] LABS: CEA 1.1 ng/mL (See Note)
[2022-12-25 09:20] LABS: Abs Immature Grans 0.01 10^3/uL (0.0-0.06); Absolute Basophil Count 0.03 10^3/uL (0.0-0.2); Absolute Eosinophil Count 0.21 10^3/uL (0.0-0.7); Absolute Lymphocyte Count 0.91 10^3/uL (1.2-3.4); Absolute Monocyte Count 0.56 10^3/uL (0.1-0.8); Absolute Neutrophil Count 2.03 10^3/uL (1.2-6.7); Basophils % 0.8; Eosinophils % 5.6; HCT 41.2 % (40.0-50.0); HGB 13.7 g/dL (13.5-17.5); Immature Grans % 0.3; Lymphocytes % 24.3; MCH 32.2 pg (27.0-33.0); MCHC 33.3 % (32.0-36.0); MCV 97 fL (80-95); MPV 11.1 fL (8.0-11.0); Monocytes % 14.9; Neutrophils % 54.1; Platelet Count 194 10^3/uL (130-400); RBC 4.26 10^6/uL (4.36-5.78); RDW 15.2 % (11.8-14.1); RDW-SD 54.2 fL; WBC 3.75 10^3/uL (4.4-10.8)
[2022-12-25 09:37] LABS: ALT 20 U/L (16-63); AST 21 U/L (15-37); Albumin 3.4 g/dL (3.4-5.0); Alkaline Phosphatase 130 U/L (46-116); Anion Gap 4.4 mmol/L (3-11); BUN 13 mg/dL (7-18); Bilirubin, Total 0.7 mg/dL (0.2-1.0); CO2 31.6 mmol/L (21.0-32.0); CREATININE 1.2 mg/dL (0.70-1.30); Calcium 8.9 mg/dL (8.5-10.1); Chloride 102 mmol/L (98-107); Estimated GFR 62.67 (mL/min/1.73m2); Glucose 94 mg/dL (74-106); Potassium 3.9 mmol/L (3.5-5.1); Sodium 138 mmol/L (136-145); Total Protein 7.7 g/dL (6.4-8.2)
[2022-12-25] MEDS: Normal Saline Flush 10 ML SYR IVP (09:41)
[2022-12-25 18:04] LABS: CEA 1.4 ng/mL (See Note)
== END 2022-12-28 23:59 | disposition home or self-care (01) ==
LOC: INF 02:04
PROVIDERS: PCP Family Medicine; Visit Provider Internal Medicine Medical Oncology
DX: J91.0 Malignant pleural effusion (principal); C77.1 Secondary and unspecified malignant neoplasm of intrathoracic lymph nodes; C15.5 Malignant neoplasm of lower third of esophagus; Z45.2 Encounter for adjustment and management of vascular access device
CPT/HCPCS: 36591; 80053; 82378; 83735; 85025

== ENCOUNTER 2023-01-24 01:59 | Outpatient (RCR) | payer MEDICARE, SELFPAY ==
[2023-01-08] MEDS: Normal Saline Flush 10 ML SYR IVP (12:12)
[2023-01-08 12:32] LABS: Absolute Lymphocyte Count 0.55 10^3/uL (1.2-3.4); Basophils % 0.2; Eosinophils % 3.1; HCT 38.2 % (40.0-50.0); HGB 12.5 g/dL (13.5-17.5); Immature Grans % 0.4; Lymphocytes % 11.5; MCH 31.6 pg (27.0-33.0); MCHC 32.7 % (32.0-36.0); MCV 97 fL (80-95); MPV 10.6 fL (8.0-11.0); Monocytes % 9.8; Platelet Count 234 10^3/uL (130-400); RBC 3.95 10^6/uL (4.36-5.78); RDW 14.6 % (11.8-14.1); RDW-SD 52.1 fL
[2023-01-08 12:33] LABS: Abs Immature Grans 0.02 10^3/uL (0.0-0.06); Absolute Basophil Count 0.01 10^3/uL (0.0-0.2); Absolute Eosinophil Count 0.15 10^3/uL (0.0-0.7); Absolute Monocyte Count 0.47 10^3/uL (0.1-0.8)
[2023-01-08 12:47] LABS: ALT 21 U/L (16-63); AST 20 U/L (15-37); Albumin 2.8 g/dL (3.4-5.0); Alkaline Phosphatase 114 U/L (46-116); Anion Gap 7.7 mmol/L (3-11); BUN 11 mg/dL (7-18); Bilirubin, Total 0.5 mg/dL (0.2-1.0); CO2 26.3 mmol/L (21.0-32.0); CREATININE 0.9 mg/dL (0.70-1.30); Calcium 8.9 mg/dL (8.5-10.1); Chloride 104 mmol/L (98-107); Estimated GFR 88.51 (mL/min/1.73m2); Glucose 100 mg/dL (74-106); Magnesium 1.8 mg/dL (1.8-2.4); Sodium 138 mmol/L (136-145); Total Protein 7.3 g/dL (6.4-8.2)
[2023-01-08 22:57] LABS: CEA 0.7 ng/mL (See Note)
[2023-01-24] MEDS: Normal Saline Flush 10 ML SYR IVP (09:28)
[2023-01-24 09:31] LABS: Abs Immature Grans 0.02 10^3/uL (0.0-0.06); Absolute Basophil Count 0.02 10^3/uL (0.0-0.2); Absolute Eosinophil Count 0.06 10^3/uL (0.0-0.7); Absolute Lymphocyte Count 0.72 10^3/uL (1.2-3.4); Absolute Monocyte Count 0.69 10^3/uL (0.1-0.8); Basophils % 0.4; Eosinophils % 1.1; HGB 12.5 g/dL (13.5-17.5); Immature Grans % 0.4; Lymphocytes % 12.6; MCH 30.9 pg (27.0-33.0); MCHC 32.1 % (32.0-36.0); MCV 96 fL (80-95); MPV 10.8 fL (8.0-11.0); Monocytes % 12.1; Neutrophils % 73.4; Platelet Count 234 10^3/uL (130-400); RBC 4.05 10^6/uL (4.36-5.78); RDW 14.6 % (11.8-14.1); RDW-SD 51.9 fL; WBC 5.71 10^3/uL (4.4-10.8)
[2023-01-24 09:48] LABS: ALT 12 U/L (16-63); AST 19 U/L (15-37); Albumin 2.8 g/dL (3.4-5.0); Alkaline Phosphatase 136 U/L (46-116); Anion Gap 7.2 mmol/L (3-11); BUN 12 mg/dL (7-18); Bilirubin, Total 0.8 mg/dL (0.2-1.0); CO2 28.8 mmol/L (21.0-32.0); CREATININE 1.1 mg/dL (0.70-1.30); Calcium 9.4 mg/dL (8.5-10.1); Chloride 101 mmol/L (98-107); Estimated GFR 69.57 (mL/min/1.73m2); Glucose 117 mg/dL (74-106); Potassium 4.1 mmol/L (3.5-5.1); Sodium 137 mmol/L (136-145); Total Protein 7.5 g/dL (6.4-8.2)
[2023-01-24 18:38] LABS: CEA 0.7 ng/mL (See Note)
== END 2023-01-27 23:59 | disposition home or self-care (01) ==
LOC: INF 01:59
PROVIDERS: PCP Family Medicine; Visit Provider Internal Medicine Medical Oncology
DX: J91.0 Malignant pleural effusion (principal); C77.1 Secondary and unspecified malignant neoplasm of intrathoracic lymph nodes; C15.5 Malignant neoplasm of lower third of esophagus; Z45.2 Encounter for adjustment and management of vascular access device
CPT/HCPCS: 36591; 80053; 82378; 83735; 85025

== ENCOUNTER 2023-02-07 01:46 | Outpatient (RCR) | payer MEDICARE, SELFPAY ==
[2023-02-07] MEDS: Normal Saline Flush 10 ML SYR IVP (11:13)
[2023-02-07 11:31] LABS: Abs Immature Grans 0.03 10^3/uL (0.0-0.06); Absolute Basophil Count 0.01 10^3/uL (0.0-0.2); Absolute Eosinophil Count 0.06 10^3/uL (0.0-0.7); Absolute Lymphocyte Count 0.58 10^3/uL (1.2-3.4); Absolute Monocyte Count 0.55 10^3/uL (0.1-0.8); Absolute Neutrophil Count 4.57 10^3/uL (1.2-6.7); Basophils % 0.2; HCT 39.9 % (40.0-50.0); HGB 12.8 g/dL (13.5-17.5); Immature Grans % 0.5; MCH 30.8 pg (27.0-33.0); MCHC 32.1 % (32.0-36.0); MCV 96 fL (80-95); Monocytes % 9.5; Neutrophils % 78.8; Platelet Count 293 10^3/uL (130-400); RBC 4.16 10^6/uL (4.36-5.78); RDW 15.4 % (11.8-14.1); RDW-SD 53.7 fL
[2023-02-07 11:45] LABS: ALT 28 U/L (16-63); AST 26 U/L (15-37); Albumin 2.6 g/dL (3.4-5.0); Alkaline Phosphatase 162 U/L (46-116); Anion Gap 7.4 mmol/L (3-11); BUN 14 mg/dL (7-18); Bilirubin, Total 0.7 mg/dL (0.2-1.0); CO2 26.6 mmol/L (21.0-32.0); Chloride 103 mmol/L (98-107); Glucose 119 mg/dL (74-106); Magnesium 1.9 mg/dL (1.8-2.4); Potassium 3.8 mmol/L (3.5-5.1); Sodium 137 mmol/L (136-145); Total Protein 7.3 g/dL (6.4-8.2)
== END 2023-02-27 23:59 | disposition home or self-care (01) ==
LOC: INF 01:46
PROVIDERS: PCP Family Medicine; Visit Provider Internal Medicine Medical Oncology
DX: J91.0 Malignant pleural effusion (principal); C77.1 Secondary and unspecified malignant neoplasm of intrathoracic lymph nodes; C15.5 Malignant neoplasm of lower third of esophagus; Z45.2 Encounter for adjustment and management of vascular access device
CPT/HCPCS: 36591; 80053; 82378; 83735; 85025

== ENCOUNTER 2023-03-19 03:59 | Outpatient (RCR) | payer MEDICARE, SELFPAY ==
[2023-03-05] MEDS: Normal Saline Flush 10 ML SYR IVP (10:39)
[2023-03-05 11:05] LABS: Abs Immature Grans 0.02 10^3/uL (0.0-0.06); Absolute Basophil Count 0.03 10^3/uL (0.0-0.2); Absolute Eosinophil Count 0.08 10^3/uL (0.0-0.7); Absolute Lymphocyte Count 0.64 10^3/uL (1.2-3.4); Absolute Monocyte Count 0.52 10^3/uL (0.1-0.8); Absolute Neutrophil Count 4.38 10^3/uL (1.2-6.7); Basophils % 0.5; Eosinophils % 1.4; HCT 42.3 % (40.0-50.0); HGB 13.2 g/dL (13.5-17.5); Immature Grans % 0.4; Lymphocytes % 11.3; MCH 29.9 pg (27.0-33.0); MCHC 31.2 % (32.0-36.0); MCV 96 fL (80-95); MPV 11.1 fL (8.0-11.0); Monocytes % 9.2; Neutrophils % 77.2; Platelet Count 258 10^3/uL (130-400); RBC 4.42 10^6/uL (4.36-5.78); RDW 17.1 % (11.8-14.1); RDW-SD 59.7 fL; WBC 5.67 10^3/uL (4.4-10.8)
[2023-03-05 11:21] LABS: ALT 39 U/L (16-63); AST 33 U/L (15-37); Albumin 2.6 g/dL (3.4-5.0); Alkaline Phosphatase 191 U/L (46-116); Anion Gap 7.6 mmol/L (3-11); BUN 12 mg/dL (7-18); Bilirubin, Total 0.5 mg/dL (0.2-1.0); CO2 27.4 mmol/L (21.0-32.0); CREATININE 0.9 mg/dL (0.70-1.30); Calcium 9.3 mg/dL (8.5-10.1); Chloride 103 mmol/L (98-107); Estimated GFR 88.51 (mL/min/1.73m2); Glucose 95 mg/dL (74-106); Magnesium 1.9 mg/dL (1.8-2.4); Potassium 3.9 mmol/L (3.5-5.1); Sodium 138 mmol/L (136-145); Total Protein 6.9 g/dL (6.4-8.2)
[2023-03-05 18:02] LABS: CEA 1.5 ng/mL (See Note)
--- NOTE | 2023-03-19 | DI.RAD_ITS ---
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 COMPARISON: No exams were available for comparison FINDINGS: HEART: Normal size. Aorta: Not dilated. PULMONARY VASCULATURE: Normal. LUNGS: Basilar atelectasis. PLEURAL SPACE: Moderate size bilateral pleural effusions. BONE:Old right rib fractures. Mild midthoracic compression fractures. Soft tissues: Port over right upper chest. IMPRESSION: Moderate bilateral pleural effusions. DATA REPOSITORY: RADIATION DOSE DELIVERED:
[2023-03-19] MEDS: Normal Saline Flush 10 ML SYR IVP (13:25)
[2023-03-19 13:29] LABS: Abs Immature Grans 0.02 10^3/uL (0.0-0.06); Absolute Basophil Count 0.03 10^3/uL (0.0-0.2); Absolute Eosinophil Count 0.05 10^3/uL (0.0-0.7); Absolute Lymphocyte Count 0.54 10^3/uL (1.2-3.4); Absolute Monocyte Count 0.35 10^3/uL (0.1-0.8); Absolute Neutrophil Count 4.39 10^3/uL (1.2-6.7); Basophils % 0.6; Eosinophils % 0.9; HCT 43.1 % (40.0-50.0); HGB 13.5 g/dL (13.5-17.5); Immature Grans % 0.4; MCH 29.7 pg (27.0-33.0); MCHC 31.3 % (32.0-36.0); MCV 95 fL (80-95); MPV 11.2 fL (8.0-11.0); Monocytes % 6.5; Neutrophils % 81.6; Platelet Count 212 10^3/uL (130-400); RBC 4.54 10^6/uL (4.36-5.78); RDW 17.2 % (11.8-14.1); RDW-SD 58.5 fL; WBC 5.38 10^3/uL (4.4-10.8)
[2023-03-19 13:44] LABS: ALT 18 U/L (16-63); AST 21 U/L (15-37); Albumin 2.5 g/dL (3.4-5.0); Alkaline Phosphatase 170 U/L (46-116); BUN 10 mg/dL (7-18); Bilirubin, Total 0.7 mg/dL (0.2-1.0); CREATININE 0.9 mg/dL (0.70-1.30); Calcium 9.1 mg/dL (8.5-10.1); Chloride 105 mmol/L (98-107); Estimated GFR 88.51 (mL/min/1.73m2); Glucose 109 mg/dL (74-106); Magnesium 1.9 mg/dL (1.8-2.4); Potassium 4.1 mmol/L (3.5-5.1); Sodium 138 mmol/L (136-145); Total Protein 6.8 g/dL (6.4-8.2)
[2023-03-19 23:03] LABS: CEA 1.3 ng/mL (See Note)
== END 2023-03-29 23:59 | disposition home or self-care (01) ==
LOC: INF 03:59
PROVIDERS: Nurse Practitioner Family; PCP Family Medicine; Visit Provider Internal Medicine Medical Oncology
DX: C15.5 Malignant neoplasm of lower third of esophagus (principal); C77.1 Secondary and unspecified malignant neoplasm of intrathoracic lymph nodes; J91.0 Malignant pleural effusion; Z45.2 Encounter for adjustment and management of vascular access device
CPT/HCPCS: 36591; 80053; 71046; 82378; 83735; 85025

== ENCOUNTER 2023-04-24 01:46 | Outpatient (RCR) | payer MEDICARE, SELFPAY ==
[2023-04-02] MEDS: Normal Saline Flush 10 ML SYR IVP (10:12)
[2023-04-02 10:44] LABS: Abs Immature Grans 0.03 10^3/uL (0.0-0.06); Absolute Basophil Count 0.02 10^3/uL (0.0-0.2); Absolute Eosinophil Count 0.08 10^3/uL (0.0-0.7); Absolute Lymphocyte Count 0.61 10^3/uL (1.2-3.4); Absolute Monocyte Count 0.59 10^3/uL (0.1-0.8); Absolute Neutrophil Count 4.93 10^3/uL (1.2-6.7); Basophils % 0.3; Eosinophils % 1.3; HCT 40.3 % (40.0-50.0); HGB 12.9 g/dL (13.5-17.5); Immature Grans % 0.5; Lymphocytes % 9.7; MCH 29.9 pg (27.0-33.0); MCV 93 fL (80-95); MPV 10.9 fL (8.0-11.0); Monocytes % 9.4; Neutrophils % 78.8; Platelet Count 306 10^3/uL (130-400); RBC 4.32 10^6/uL (4.36-5.78); RDW 17.5 % (11.8-14.1); RDW-SD 59.1 fL; WBC 6.26 10^3/uL (4.4-10.8)
[2023-04-02 11:08] LABS: ALT 20 U/L (16-63); AST 21 U/L (15-37); Albumin 2.3 g/dL (3.4-5.0); Alkaline Phosphatase 156 U/L (46-116); Anion Gap 5.9 mmol/L (3-11); BUN 9 mg/dL (7-18); Bilirubin, Total 0.7 mg/dL (0.2-1.0); CO2 28.1 mmol/L (21.0-32.0); CREATININE 0.8 mg/dL (0.70-1.30); Calcium 8.9 mg/dL (8.5-10.1); Chloride 104 mmol/L (98-107); Estimated GFR 91.72 (mL/min/1.73m2); Glucose 94 mg/dL (74-106); Magnesium 1.7 mg/dL (1.8-2.4); Potassium 4.1 mmol/L (3.5-5.1); Sodium 138 mmol/L (136-145); Total Protein 6.5 g/dL (6.4-8.2)
[2023-04-02 18:42] LABS: CEA 1.2 ng/mL (See Note)
== END 2023-04-29 23:59 | disposition home or self-care (01) ==
LOC: INF 01:46
PROVIDERS: PCP Family Medicine; Visit Provider Internal Medicine Medical Oncology
DX: C15.5 Malignant neoplasm of lower third of esophagus (principal); C77.1 Secondary and unspecified malignant neoplasm of intrathoracic lymph nodes; J91.0 Malignant pleural effusion; Z45.2 Encounter for adjustment and management of vascular access device
CPT/HCPCS: 36591; 80053; 82378; 83735; 85025

== ENCOUNTER 2023-05-07 04:13 | Outpatient (RCR) | payer MEDICARE, SELFPAY ==
[2023-05-07] MEDS: Normal Saline Flush 10 ML SYR IVP (13:38)
[2023-05-07 13:49] LABS: Abs Immature Grans 0.03 10^3/uL (0.0-0.06); Absolute Basophil Count 0.03 10^3/uL (0.0-0.2); Absolute Eosinophil Count 0.03 10^3/uL (0.0-0.7); Absolute Lymphocyte Count 0.58 10^3/uL (1.2-3.4); Absolute Monocyte Count 0.49 10^3/uL (0.1-0.8); Basophils % 0.5; Eosinophils % 0.5; HCT 35.7 % (40.0-50.0); HGB 11.1 g/dL (13.5-17.5); Immature Grans % 0.5; Lymphocytes % 9.3; MCH 28.8 pg (27.0-33.0); MCHC 31.1 % (32.0-36.0); MCV 93 fL (80-95); MPV 10.3 fL (8.0-11.0); Monocytes % 7.8; Neutrophils % 81.4; Platelet Count 285 10^3/uL (130-400); RBC 3.85 10^6/uL (4.36-5.78); RDW 19.7 % (11.8-14.1); RDW-SD 66.4 fL; WBC 6.26 10^3/uL (4.4-10.8)
[2023-05-07 14:05] LABS: ALT 18 U/L (16-63); AST 27 U/L (15-37); Albumin 1.6 g/dL (3.4-5.0); Alkaline Phosphatase 175 U/L (46-116); Anion Gap 3.8 mmol/L (3-11); BUN 17 mg/dL (7-18); Bilirubin, Total 0.5 mg/dL (0.2-1.0); CO2 28.2 mmol/L (21.0-32.0); CREATININE 0.7 mg/dL (0.70-1.30); Calcium 8.5 mg/dL (8.5-10.1); Chloride 105 mmol/L (98-107); Estimated GFR 95.49 (mL/min/1.73m2); Glucose 110 mg/dL (74-106); Magnesium 1.9 mg/dL (1.8-2.4); Potassium 4.5 mmol/L (3.5-5.1); Sodium 137 mmol/L (136-145); Total Protein 6.6 g/dL (6.4-8.2)
[2023-05-08 10:24] LABS: CEA 1.7 ng/mL (See Note)
== END 2023-05-30 23:59 | disposition home or self-care (01) ==
LOC: INF 04:13
PROVIDERS: PCP Family Medicine; Visit Provider Internal Medicine Medical Oncology
DX: C15.5 Malignant neoplasm of lower third of esophagus (principal); Z45.2 Encounter for adjustment and management of vascular access device
CPT/HCPCS: 36591; 80053; 82378; 83735; 85025

== ENCOUNTER 2023-06-25 09:15 | Outpatient (RCR) | payer MEDICARE, SELFPAY ==
[2023-06-04] MEDS: Normal Saline Flush 10 ML SYR IVP (10:18)
[2023-06-04 10:26] LABS: Abs Immature Grans 0.02 10^3/uL (0.0-0.06); Absolute Basophil Count 0.02 10^3/uL (0.0-0.2); Absolute Eosinophil Count 0.18 10^3/uL (0.0-0.7); Absolute Lymphocyte Count 0.57 10^3/uL (1.2-3.4); Absolute Neutrophil Count 4.27 10^3/uL (1.2-6.7); Basophils % 0.3; HCT 31.9 % (40.0-50.0); HGB 10.1 g/dL (13.5-17.5); Immature Grans % 0.3; Lymphocytes % 9.4; MCH 28.9 pg (27.0-33.0); MCHC 31.7 % (32.0-36.0); MCV 91 fL (80-95); MPV 10.3 fL (8.0-11.0); Monocytes % 16.5; Neutrophils % 70.5; Platelet Count 462 10^3/uL (130-400); RDW 17.8 % (11.8-14.1); RDW-SD 59.7 fL; WBC 6.06 10^3/uL (4.4-10.8)
[2023-06-04 10:42] LABS: ALT 10 U/L (16-63); AST 21 U/L (15-37); Albumin 1.7 g/dL (3.4-5.0); Alkaline Phosphatase 188 U/L (46-116); BUN 25 mg/dL (7-18); Bilirubin, Total 0.4 mg/dL (0.2-1.0); Calcium 8.5 mg/dL (8.5-10.1); Chloride 97 mmol/L (98-107); Glucose 86 mg/dL (74-106); Magnesium 1.5 mg/dL (1.8-2.4); Potassium 3.4 mmol/L (3.5-5.1); Sodium 135 mmol/L (136-145); Total Protein 7.4 g/dL (6.4-8.2)
[2023-06-04 18:33] LABS: CEA 1.2 ng/mL (See Note)
[2023-06-25] MEDS: Normal Saline Flush 10 ML SYR IVP (09:19)
[2023-06-25 09:42] LABS: Abs Immature Grans 0.03 10^3/uL (0.0-0.06); Absolute Basophil Count 0.04 10^3/uL (0.0-0.2); Absolute Eosinophil Count 0.06 10^3/uL (0.0-0.7); Absolute Lymphocyte Count 0.59 10^3/uL (1.2-3.4); Absolute Monocyte Count 0.81 10^3/uL (0.1-0.8); Absolute Neutrophil Count 4.58 10^3/uL (1.2-6.7); Basophils % 0.7; HCT 33.5 % (40.0-50.0); HGB 10.6 g/dL (13.5-17.5); Immature Grans % 0.5; Lymphocytes % 9.7; MCH 28.8 pg (27.0-33.0); MCHC 31.6 % (32.0-36.0); MCV 91 fL (80-95); MPV 10.4 fL (8.0-11.0); Monocytes % 13.3; Neutrophils % 74.8; Platelet Count 411 10^3/uL (130-400); RBC 3.68 10^6/uL (4.36-5.78); RDW 18.6 % (11.8-14.1); RDW-SD 61.9 fL; WBC 6.11 10^3/uL (4.4-10.8)
[2023-06-25 09:59] LABS: ALT 10 U/L (16-63); AST 25 U/L (15-37); Alkaline Phosphatase 181 U/L (46-116); BUN 18 mg/dL (7-18); Bilirubin, Total 0.6 mg/dL (0.2-1.0); CREATININE 1.2 mg/dL (0.70-1.30); Calcium 9.1 mg/dL (8.5-10.1); Chloride 96 mmol/L (98-107); Estimated GFR 62.67 (mL/min/1.73m2); Glucose 94 mg/dL (74-106); Magnesium 1.5 mg/dL (1.8-2.4); Potassium 3.8 mmol/L (3.5-5.1); Sodium 135 mmol/L (136-145); Total Protein 8.1 g/dL (6.4-8.2)
[2023-06-25 19:59] LABS: CEA 1.6 ng/mL (See Note)
== END 2023-06-28 23:59 | disposition home or self-care (01) ==
LOC: INF 09:15
PROVIDERS: Nurse Practitioner Family; PCP Family Medicine; Visit Provider Internal Medicine Medical Oncology
DX: C15.5 Malignant neoplasm of lower third of esophagus (principal); J91.0 Malignant pleural effusion; C77.1 Secondary and unspecified malignant neoplasm of intrathoracic lymph nodes; Z45.2 Encounter for adjustment and management of vascular access device
CPT/HCPCS: 36591; 80053; 82378; 83735; 85025